=== PATIENT | female | born 1960 | race Caucasian/White ===

== ENCOUNTER 2021-08-24 09:23 | Observation (INO) ==
[2021-08-24 10:05] LABS: Basophils % 0.4 %; Eosinophils % 0.5 %; Hematocrit 45.7 % (35.3-44.9); Hemoglobin 15.3 g/dL (11.5-15.4); Immature Granulocytes % 0.4 % (0-4); Lymphocytes # 1.5 K/mcL (0.6-4.6); Lymphocytes % 19.3 %; Mean Corpuscular HGB Conc 33.5 g/dL (31.6-35.5); Mean Corpuscular Hemoglobin 31.7 pg (28.0-33.3); Mean Corpuscular Volume 94.6 fL (83.0-100.0); Mean Platelet Volume 9.8 fL (9.4-12.4); Monocytes # 0.5 K/mcL (0.0-1.3); Monocytes % 6.7 %; Neutrophils # 5.6 K/mcL (1.6-8.9); Platelet Count 272 K/mcL (140-400); Red Blood Count 4.83 M/mcL (3.82-4.97); Red Cell Distribution Width 13.6 % (11.5-14.5); Segmented Neutrophils % 72.7 %; White Blood Count 7.7 K/mcL (4.3-11.1)
[2021-08-24 10:17] LABS: INR 1.1; Prothrombin Time 12.7 Seconds (9.4-12.1)
[2021-08-24 10:20] LABS: Activated Partial Thrombo Time 28.5 Seconds (26.0-36.0)
[2021-08-24 10:30] LABS: BUN/Creatinine Ratio 23 (6-26); Blood Urea Nitrogen 22 mg/dL (8-23); Calcium 9.6 mg/dL (8.6-10.3); Carbon Dioxide 25 mEq/L (23-29); Chloride 104 mEq/L (98-107); Glucose 127 mg/dL (70-105); Osmolality,Calculated 291 (280-300); Potassium 3.3 mEq/L (3.5-5.1); Sodium 138 mEq/L (136-145); Troponin I 0.03 ng/mL (< 0.04); eGFR For African Americans > 60 (> 60); eGFR For Non-African Americans 59 (> 60)
[2021-08-24] MEDS ORDERED: GI Cocktail 40 ML EACH PO ONE (11:24)
[2021-08-24] MEDS ORDERED: Famotidine 20 MG/2 ML VIAL IVP ONE (11:24)
[2021-08-24] MEDS ORDERED: Aspirin 325 MG TABLET PO ONE (11:53)
[2021-08-24] MEDS ORDERED: Naloxone 0.4 MG/ML INJ IVP PRN (12:19)
[2021-08-24] MEDS ORDERED: Ondansetron 4 MG/2 ML VIAL IVP PRN (12:19)
[2021-08-24] MEDS ORDERED: Nitroglycerin 0.4 MG TAB.SUBL SL PRN (12:23)
[2021-08-24] MEDS ORDERED: Perflutren Lipid Microsphere 1.3 ML in 0.9 % Sodium Chloride 8.7 ML IVP PRN (12:24)
[2021-08-24] MEDS ORDERED: *HR* Dextrose 50 % in Water (Syg) 50 ML SYRINGE IVP PRN (12:24)
[2021-08-24] MEDS ORDERED: D5% in Water 1,000 ML IVC PRN (12:24)
[2021-08-24] MEDS ORDERED: Dextrose Gel 15 GM/37.5 ML TUBE PO PRN ×2 (12:24)
[2021-08-24 12:39] LABS: Magnesium 2.1 mg/dL (1.6-2.6)
[2021-08-24 14:55] LABS: Estimated Average Glucose 120 mg/dl; Hemoglobin A1C 5.8 %
[2021-08-24] MEDS: Ipratropium 1 PUFF INHALER IH SCH ×2 (15:38→19:46)
[2021-08-24] MEDS: Acetaminophen 325 MG TABLET PO PRN (16:18)
[2021-08-24] MEDS: Azithromycin 500 MG in D5% in Water 250 ML IVPB SCH (16:19)
[2021-08-24] MEDS ORDERED: *HR* Heparin 5,000 UNIT/ML VIAL IVP ONE (16:30)
[2021-08-24] MEDS ORDERED: Heparin 25,000UNIT/250ML 1/2NS 25,000 UNIT/250 ML IV.SOLN IVC SCH (16:30)
[2021-08-24] MEDS ORDERED: *HR* Heparin 5,000 UNIT/ML VIAL IVP PRN ×2 (16:30)
[2021-08-24 17:57] LABS: Hematocrit 43.8 % (35.3-44.9); Hemoglobin 14.9 g/dL (11.5-15.4); Mean Corpuscular Hemoglobin 31.8 pg (28.0-33.3); Mean Corpuscular Volume 93.6 fL (83.0-100.0); Platelet Count 278 K/mcL (140-400); Red Blood Count 4.68 M/mcL (3.82-4.97); Red Cell Distribution Width 13.5 % (11.5-14.5); White Blood Count 6.9 K/mcL (4.3-11.1)
[2021-08-24] MEDS: Insulin LISPRO 300 UNITS/3 ML VIAL SUBQ SCH ×2 (18:03→20:04)
[2021-08-24 18:04] LABS: Heparin anti-factor XA UFH < 0.04 IU/mL (0.30-0.70)
[2021-08-24 18:05] LABS: INR 1.1
[2021-08-25] MEDS: Ipratropium 1 PUFF INHALER IH SCH ×7 (00:22→23:24)
[2021-08-25 01:19] LABS: Basophils % 0.1 %; Hematocrit 43.1 % (35.3-44.9); Hemoglobin 14.7 g/dL (11.5-15.4); Immature Granulocytes % 0.4 % (0-4); Lymphocytes # 1.5 K/mcL (0.6-4.6); Lymphocytes % 19.8 %; Mean Corpuscular HGB Conc 34.1 g/dL (31.6-35.5); Mean Corpuscular Volume 93.7 fL (83.0-100.0); Monocytes # 0.4 K/mcL (0.0-1.3); Monocytes % 5.3 %; Neutrophils # 5.5 K/mcL (1.6-8.9); Platelet Count 332 K/mcL (140-400); Red Cell Distribution Width 13.4 % (11.5-14.5); Segmented Neutrophils % 74.4 %; White Blood Count 7.3 K/mcL (4.3-11.1)
[2021-08-25 01:42] LABS: Alanine Aminotransferase 15 Units/L (7-52); Albumin 4.1 g/dL (3.5-5.7); Alkaline Phosphatase 95 Units/L (34-104); Aspartate Amino Transferase 17 Units/L (13-39); BUN/Creatinine Ratio 25 (6-26); Bilirubin,Total 0.7 mg/dL (0.3-1.0); Blood Urea Nitrogen 19 mg/dL (8-23); Calcium 9.5 mg/dL (8.6-10.3); Carbon Dioxide 24 mEq/L (23-29); Chloride 104 mEq/L (98-107); Chol/HDL Ratio 5.1 (0-4.9); Cholesterol 205 mg/dL (< 200); Glucose 124 mg/dL (70-105); HDL Cholesterol 40 mg/dL (40-59); LDL Cholesterol,Calculated 147 mg/dL (< 100); Osmolality,Calculated 288 (280-300); Potassium 3.8 mEq/L (3.5-5.1); Sodium 137 mEq/L (136-145); Total Protein 8.1 g/dL (6.4-8.9); Triglycerides 91 mg/dL (< 150); eGFR For African Americans > 60 (> 60); eGFR For Non-African Americans > 60 (> 60)
[2021-08-25] MEDS ORDERED: *HR* Enoxaparin 40 MG/0.4 ML SYRINGE SQ SCH (06:00)
[2021-08-25] MEDS: Insulin LISPRO 300 UNITS/3 ML VIAL SUBQ SCH ×4 (07:37→20:20)
[2021-08-25] MEDS ORDERED: Pantoprazole 40 MG VIAL IVP SCH (09:00)
[2021-08-25] MEDS ORDERED: Dexamethasone Sodium Phos/PF 10 MG/ML VIAL IVP SCH (09:00)
[2021-08-25] MEDS: Dexamethasone Sodium Phos/PF 10 MG/ML VIAL IVP SCH (09:35)
[2021-08-25] MEDS: Aspirin 81 MG TAB.CHEW PO SCH (09:35)
[2021-08-25] MEDS: Heparin 25,000UNIT/250ML 1/2NS 25,000 UNIT/250 ML IV.SOLN IVC SCH ×2 (10:28→22:22)
[2021-08-25] MEDS: Azithromycin 500 MG in D5% in Water 250 ML IVPB SCH (18:00)
[2021-08-26] MEDS ORDERED: Heparin 25,000UNIT/250ML 1/2NS 25,000 UNIT/250 ML IV.SOLN IVC SCH (00:30)
[2021-08-26] MEDS: Acetaminophen 325 MG TABLET PO PRN (01:28)
[2021-08-26 01:32] LABS: Basophils % 0.1 %; Hematocrit 42.6 % (35.3-44.9); Hemoglobin 14.5 g/dL (11.5-15.4); Immature Granulocytes % 0.8 % (0-4); Lymphocytes # 1.9 K/mcL (0.6-4.6); Lymphocytes % 21.6 %; Mean Platelet Volume 9.7 fL (9.4-12.4); Monocytes # 0.8 K/mcL (0.0-1.3); Monocytes % 8.6 %; Neutrophils # 6.1 K/mcL (1.6-8.9); Platelet Count 342 K/mcL (140-400); Red Blood Count 4.53 M/mcL (3.82-4.97); Red Cell Distribution Width 13.4 % (11.5-14.5); Segmented Neutrophils % 68.9 %; White Blood Count 8.9 K/mcL (4.3-11.1)
[2021-08-26 01:44] LABS: BUN/Creatinine Ratio 27 (6-26); Blood Urea Nitrogen 21 mg/dL (8-23); Calcium 8.9 mg/dL (8.6-10.3); Carbon Dioxide 22 mEq/L (23-29); Chloride 105 mEq/L (98-107); Glucose 117 mg/dL (70-105); Magnesium 2.3 mg/dL (1.6-2.6); Osmolality,Calculated 286 (280-300); Potassium 3.7 mEq/L (3.5-5.1); Sodium 136 mEq/L (136-145); eGFR For African Americans > 60 (> 60); eGFR For Non-African Americans > 60 (> 60)
[2021-08-26] MEDS: Ipratropium 1 PUFF INHALER IH SCH ×3 (04:19→11:10)
[2021-08-26 08:32] VITALS: BP 119/75; PULSE 68; TEMP 98; O2SAT 98
[2021-08-26] MEDS: Insulin LISPRO 300 UNITS/3 ML VIAL SUBQ SCH (08:32)
[2021-08-26] MEDS: Aspirin 81 MG TAB.CHEW PO SCH (08:32)
[2021-08-26] MEDS: Dexamethasone Sodium Phos/PF 10 MG/ML VIAL IVP SCH (08:34)
[2021-08-26] MEDS ORDERED: NALOXONE HCL PO SCH (09:00)
[2021-08-26] MEDS ORDERED: BUPRENORPHINE HCL PO SCH (09:00)
== END 2021-08-26 14:00 | disposition home or self-care (01) ==
LOC: 3BNU 09:23 → EMEROOARM 09:23 → 3BNU 16:44
PROVIDERS: ADMIT General Practice; ATTEND General Practice